=== PATIENT | female | born 1955 | race Caucasian/White ===

== ENCOUNTER 2020-01-09 21:46 | Emergency (ER) | payer OTHER ==
[~2020-01-09] VITALS: Ht 162.6 cm; Wt 5.9 kg
[~2020-01-09 21:46] MED LIST: Cleocin HCl300 MG PO
[2020-01-09] MEDS ORDERED: Atrovent Inha12.9 GM INH (22:02)
[2020-01-09 22:32] LABS: BASOPHILS ABSOLUTE AUTO 0.09 K/mm3 (0.00-0.23); BASOPHILS PERCENT AUTO 1 % (0-2); EOSINOPHILS ABSOLUTE AUTO 0.16 K/mm3 (0.00-0.68); EOSINOPHILS PERCENT AUTO 2 % (0-6); Hematocrit 38.6 % (33.0-51.0); Hemoglobin 13.1 g/dL (11.5-16.0); IMMATURE GRAN ABSOLUTE AUTO 0.01 K/mm3 (0.00-0.10); IMMATURE GRAN PERCENT AUTO 0 % (0-1); LYMPHOCYTES ABSOLUTE AUTO 1.75 K/mm3 (0.84-5.20); LYMPHOCYTES PERCENT AUTO 26 % (21-46); MONOCYTES ABSOLUTE AUTO 0.64 K/mm3 (0.16-1.47); MONOCYTES PERCENT AUTO 9 % (4-13); Mean Corpuscular HGB 31.3 pg (26.0-34.0); Mean Corpuscular HGB Conc 33.9 g/dL (31.5-36.5); Mean Corpuscular Volume 92 fL (80-100); Mean Platelet Volume 9.1 fL (9.1-12.4); NEUTROPHILS ABSOLUTE AUTO 4.21 K/mm3 (1.96-9.15); NEUTROPHILS PERCENT AUTO 62 % (41-73); Platelet Count 296 K/mm3 (150-400); RDW Coefficient Variation 12.5 % (11.7-14.2); RDW Standard Deviation 42.5 fL (35.1-46.3); Red Blood Cell Count 4.19 M/mm3 (3.80-5.20); White Blood Cell Count 6.86 K/mm3 (4.00-11.30)
[2020-01-09 22:52] LABS: Alanine Aminotransfer (ALT/SGP 22 U/L (12-78); Albumin, Blood 3.4 g/dL (3.4-5.0); Alk Phos 97 U/L (50-136); Anion Gap 9 mmol/L (6-16); Aspartate Aminotrans (AST/SGOT 16 U/L (12-37); Bilirubin, Total 0.4 mg/dL (0.1-1.0); Blood Urea Nitrogen 18 mg/dL (8-24); Bun/Creatinine Ratio 26.3 (12.0-20.0); CO2, Blood 26 mmol/L (21-32); Calcium, Blood 8.5 mg/dL (8.5-10.1); Chloride, Blood 108 mmol/L (98-108); Creatinine, Blood 0.69 mg/dL (0.40-1.00); Globulin, Blood 3.4 g/dL (2.2-4.0); Glomerular Filtration Rate >60 (60-); Glucose, Blood 149 mg/dL (70-99); Potassium, Blood 4.2 mmol/L (3.5-5.5); Sodium, Blood 143 mmol/L (136-145); Total Protein, Blood 6.8 g/dL (6.4-8.2)
[2020-01-09] MEDS ORDERED: Omeprazole20 M1 PO (23:11)
== END 2020-01-09 23:38 | disposition home or self-care (01) ==
LOC: ER 21:46
PROVIDERS: Physician Assistant
DX: R04.2 Hemoptysis (principal); R10.13 Epigastric pain; E11.9 Type 2 diabetes mellitus without complications; F17.210 Nicotine dependence, cigarettes, uncomplicated; Z88.0 Allergy status to penicillin; Z88.1 Allergy status to other antibiotic agents
CPT/HCPCS: 71045; 80053; 83690; 85025; 99283-25

== ENCOUNTER 2020-07-22 08:08 | Emergency (ER) | payer OTHER ==
[~2020-07-22] VITALS: Ht 162.6 cm; Wt 61.2 kg
[~2020-07-22 08:08] MED LIST changes: +Atrovent Inha12.9 GM INH; +Omeprazole20 M1 PO
[2020-07-22 09:53] LABS: BASOPHILS ABSOLUTE AUTO 0.08 K/mm3 (0.00-0.23); BASOPHILS PERCENT AUTO 1 % (0-2); EOSINOPHILS PERCENT AUTO 1 % (0-6); Hematocrit 42.8 % (33.0-51.0); Hemoglobin 14.4 g/dL (11.5-16.0); IMMATURE GRAN ABSOLUTE AUTO 0.03 K/mm3 (0.00-0.10); IMMATURE GRAN PERCENT AUTO 0 % (0-1); LYMPHOCYTES ABSOLUTE AUTO 1.69 K/mm3 (0.84-5.20); LYMPHOCYTES PERCENT AUTO 16 % (21-46); MONOCYTES ABSOLUTE AUTO 0.77 K/mm3 (0.16-1.47); MONOCYTES PERCENT AUTO 7 % (4-13); Mean Corpuscular HGB 30.7 pg (26.0-34.0); Mean Corpuscular HGB Conc 33.6 g/dL (31.5-36.5); Mean Corpuscular Volume 91 fL (80-100); Mean Platelet Volume 8.8 fL (9.1-12.4); NEUTROPHILS ABSOLUTE AUTO 8.01 K/mm3 (1.96-9.15); NEUTROPHILS PERCENT AUTO 75 % (41-73); Platelet Count 330 K/mm3 (150-400); RDW Coefficient Variation 12.4 % (11.7-14.2); RDW Standard Deviation 40.7 fL (35.1-46.3); Red Blood Cell Count 4.69 M/mm3 (3.80-5.20); White Blood Cell Count 10.68 K/mm3 (4.00-11.30)
== END 2020-07-22 12:23 | disposition home or self-care (01) ==
LOC: ER 08:08
PROVIDERS: Emergency Medicine
DX: R04.0 Epistaxis (principal); E11.9 Type 2 diabetes mellitus without complications; J44.9 Chronic obstructive pulmonary disease, unspecified; Z88.0 Allergy status to penicillin; Z88.1 Allergy status to other antibiotic agents
CPT/HCPCS: 85025; 99283

== ENCOUNTER 2021-02-09 09:46 | Emergency (ER) | payer OTHER ==
[~2021-02-09] VITALS: Ht 162.6 cm; Wt 65.8 kg
[~2021-02-09 09:46] MED LIST changes: +ALBU90OI INH; +ATROVENT HFA12.9 GM; +OMEP20ER PO
[2021-02-09] MEDS ORDERED: Norco 5-325 Ta1 EACH PO (12:02)
== END 2021-02-09 12:18 | disposition home or self-care (01) ==
LOC: ER 09:46
DX: S20.212A Contusion of left front wall of thorax, initial encounter (principal); E11.9 Type 2 diabetes mellitus without complications; J44.9 Chronic obstructive pulmonary disease, unspecified; F17.210 Nicotine dependence, cigarettes, uncomplicated; Z79.899 Other long term (current) drug therapy; Z88.0 Allergy status to penicillin; Z88.8 Allergy status to other drugs, medicaments and biological substances; X50.1XXA Overexertion from prolonged static or awkward postures, initial encounter
CPT/HCPCS: 71100; 99283-25; A9270

== ENCOUNTER 2021-03-08 20:43 | Emergency (ER) | payer OTHER ==
[~2021-03-08] VITALS: Ht 162.6 cm; Wt 65.8 kg
[~2021-03-08 20:43] MED LIST changes: +Norco 5-325 Ta1 EACH PO
[2021-03-08] MEDS ORDERED: Monodox100 MG PO (22:13)
== END 2021-03-08 22:52 | disposition home or self-care (01) ==
LOC: ER 20:43
DX: L03.115 Cellulitis of right lower limb (principal); E11.9 Type 2 diabetes mellitus without complications; J44.9 Chronic obstructive pulmonary disease, unspecified; Z88.0 Allergy status to penicillin; Z88.8 Allergy status to other drugs, medicaments and biological substances; Z87.891 Personal history of nicotine dependence
CPT/HCPCS: 93971; 99283-25; A9270

== ENCOUNTER 2021-04-21 01:59 | Day surgery (SDC) | payer OTHER ==
[~2021-04-21 01:59] MED LIST changes: +Monodox100 MG PO
== END 2021-04-21 23:00 | disposition home or self-care (01) ==
LOC: WOUND 01:59
DX: L03.115 Cellulitis of right lower limb (principal); Z88.0 Allergy status to penicillin
CPT/HCPCS: G0463

== ENCOUNTER 2021-04-29 17:39 | Emergency (ER) | payer OTHER ==
[~2021-04-29] VITALS: Ht 162.6 cm; Wt 64.4 kg
== END 2021-04-29 20:07 | disposition home or self-care (01) ==
LOC: ER 17:39
DX: K44.9 Diaphragmatic hernia without obstruction or gangrene (principal); E11.9 Type 2 diabetes mellitus without complications; M81.0 Age-related osteoporosis without current pathological fracture; J44.9 Chronic obstructive pulmonary disease, unspecified; Z88.0 Allergy status to penicillin; Z88.1 Allergy status to other antibiotic agents; Z87.891 Personal history of nicotine dependence; Z20.822 Contact with and (suspected) exposure to COVID-19
CPT/HCPCS: 71045; 99283-25

== ENCOUNTER 2021-08-23 18:56 | Emergency (ER) | payer OTHER ==
[~2021-08-23] VITALS: Ht 162.6 cm; Wt 60.8 kg
== END 2021-08-23 20:02 | disposition home or self-care (01) ==
LOC: ER 18:56
DX: J06.9 Acute upper respiratory infection, unspecified (principal); Z20.822 Contact with and (suspected) exposure to COVID-19; E11.9 Type 2 diabetes mellitus without complications; J44.9 Chronic obstructive pulmonary disease, unspecified; Z87.891 Personal history of nicotine dependence; Z88.0 Allergy status to penicillin; Z88.8 Allergy status to other drugs, medicaments and biological substances
CPT/HCPCS: 99284

== ENCOUNTER 2022-02-04 18:54 | Emergency (ER) | payer OTHER ==
[~2022-02-04] VITALS: Ht 162.6 cm; Wt 66.7 kg
[2022-02-04 19:39] LABS: BASOPHILS ABSOLUTE AUTO 0.08 K/mm3 (0.00-0.23); BASOPHILS PERCENT AUTO 1 % (0-2); EOSINOPHILS ABSOLUTE AUTO 0.29 K/mm3 (0.00-0.68); EOSINOPHILS PERCENT AUTO 4 % (0-6); Hematocrit 40.5 % (33.0-51.0); Hemoglobin 13.7 g/dL (11.5-16.0); IMMATURE GRAN ABSOLUTE AUTO 0.02 K/mm3 (0.00-0.10); IMMATURE GRAN PERCENT AUTO 0 % (0-1); LYMPHOCYTES ABSOLUTE AUTO 1.97 K/mm3 (0.84-5.20); LYMPHOCYTES PERCENT AUTO 26 % (21-46); MONOCYTES ABSOLUTE AUTO 0.75 K/mm3 (0.16-1.47); MONOCYTES PERCENT AUTO 10 % (4-13); Mean Corpuscular HGB 30.3 pg (26.0-34.0); Mean Corpuscular HGB Conc 33.8 g/dL (31.5-36.5); Mean Corpuscular Volume 90 fL (80-100); Mean Platelet Volume 9.4 fL (9.1-12.4); NEUTROPHILS ABSOLUTE AUTO 4.49 K/mm3 (1.96-9.15); NEUTROPHILS PERCENT AUTO 59 % (41-73); Platelet Count 324 K/mm3 (150-400); RDW Standard Deviation 42.5 fL (35.1-46.3); Red Blood Cell Count 4.52 M/mm3 (3.80-5.20)
[2022-02-04 20:00] LABS: Albumin, Blood 3.3 g/dL (3.4-5.0); Bilirubin, Total 0.2 mg/dL (0.1-1.0); Bun/Creatinine Ratio 23.6 (12.0-20.0); Calcium, Blood 8.6 mg/dL (8.5-10.1); Creatinine, Blood 0.76 mg/dL (0.40-1.00); Globulin, Blood 3.4 g/dL (2.2-4.0); Potassium, Blood 3.8 mmol/L (3.5-5.5); Total Protein, Blood 6.7 g/dL (6.4-8.2)
== END 2022-02-04 22:37 | disposition left against medical advice (07) ==
LOC: ER 18:54
PROVIDERS: Emergency Medicine
DX: R07.9 Chest pain, unspecified (principal); Z53.21 Procedure and treatment not carried out due to patient leaving prior to being seen by health care provider
CPT/HCPCS: 36415; 71046; 80053; 83690; 83880; 84484; 85025; 93005; 93010

== ENCOUNTER 2022-04-04 14:08 | Emergency (ER) | payer OTHER ==
[~2022-04-04] VITALS: Ht 162.6 cm; Wt 63.5 kg
== END 2022-04-04 15:59 | disposition home or self-care (01) ==
LOC: ER 14:08
DX: U07.1 COVID-19 (principal); E11.9 Type 2 diabetes mellitus without complications; Z87.891 Personal history of nicotine dependence
CPT/HCPCS: 99282

== ENCOUNTER → 2022-04-13 | Outpatient (CLI) | payer OTHER ==
[2022-04-15 19:06] LABS: HPV 16 Negative (Negative); HPV 18 Negative (Negative); HPV OTHER HR TYPES Positive (Negative)
== END | disposition home or self-care (01) ==
LOC: LAB SHORT 12:04 → LAB 12:04
PROVIDERS: Registered Nurse Community Health
DX: Z12.4 Encounter for screening for malignant neoplasm of cervix (principal)
CPT/HCPCS: 87624; 87625; G0123

== ENCOUNTER 2022-07-15 08:32 | Day surgery (SDC) | payer MEDICARE, OTHER ==
[~2022-07-15] VITALS: Ht 162.6 cm; Wt 65.3 kg
[2022-07-15] MEDS ORDERED: Bentyl10 MG (09:35)
[2022-07-15] MEDS ORDERED: ALBU90OI (09:35)
[2022-07-15] MEDS ORDERED: OMEP20ER (09:36)
[2022-07-15] MEDS ORDERED: IPRAT-ALBUT 0.5-3 ML (09:36)
== END 2022-07-15 10:50 | disposition home or self-care (01) ==
LOC: ORSCSDS 08:32
PROVIDERS: Surgery
PROC: 0DB48ZX Excision of Esophagogastric Junction, Via Natural or Artificial Opening Endoscopic, Diagnostic (ICD-10-PCS; principal; 2022-07-15 10:15)
DX: K21.9 Gastro-esophageal reflux disease without esophagitis (principal); K22.70 Barrett's esophagus without dysplasia; K44.9 Diaphragmatic hernia without obstruction or gangrene; Z87.891 Personal history of nicotine dependence; J44.9 Chronic obstructive pulmonary disease, unspecified; E11.9 Type 2 diabetes mellitus without complications; E78.5 Hyperlipidemia, unspecified; Z79.899 Other long term (current) drug therapy
CPT/HCPCS: 88305; J2704; J7120

== ENCOUNTER 2022-10-27 15:00 | Emergency (ER) | payer MEDICARE, OTHER ==
[~2022-10-27] VITALS: Ht 162.6 cm; Wt 68.0 kg
[~2022-10-27 15:00] MED LIST changes: +ALBU90OI; +Bentyl10 MG; +IPRAT-ALBUT 0.5-3 ML; +OMEP20ER
[2022-10-27 16:28] LABS: Source, Urine Clean Catch
[2022-10-27 16:32] LABS: Appearance, Urine Clear (Clear); Bilirubin, Urine Neg (Neg); Blood, Urine Neg (Neg); Color, Urine Yellow (P-Yellow); Glucose Qualitative, Urine Neg (Neg); Ketones, Urine Neg (Neg); Leukocyte Esterase, Urine Neg (Neg); Nitrite, Urine Neg (Neg); Protein, Urine Neg (Neg); Specific Gravity, Urine 1.025 (1.003-1.022); Urobilinogen, Urine NORM (Normal)
== END 2022-10-27 16:52 | disposition home or self-care (01) ==
LOC: ER 15:00
PROVIDERS: Student in an Organized Health Care Education/Training Program
DX: M79.605 Pain in left leg (principal); E11.9 Type 2 diabetes mellitus without complications; Z79.899 Other long term (current) drug therapy; Z87.891 Personal history of nicotine dependence
CPT/HCPCS: 81003; 93971; 96372; 99284-25; J1885

== ENCOUNTER 2023-12-12 00:33 | Inpatient (IN) | payer MEDICARE, OTHER ==
[~2023-12-12] VITALS: Ht 160 cm; Wt 61.2 kg
[2023-12-12] VITALS (21 sets, daily range): BP systolic 115–193; BP diastolic 70–103
[~2023-12-12 00:33] MED LIST changes: +BENADRYL25 MG PO; +CLIN150 PO; +DELTASONE20 MG PO; +ESTRADIOL42.5 GM; +FAMO20 PO; +TRITOCIN430 GM
[2023-12-12] MEDS ORDERED: NS 1,000 ML IV SCH ×2 (02:10→05:20)
[2023-12-12] MEDS ORDERED: Ondansetron HCl 2 MG / ML 2ML Vial IV ONE (02:10)
[2023-12-12] MEDS ORDERED: Ketorolac Tromethamine 30mg Vial IV ONE (02:10)
[2023-12-12 02:22] LABS: BASOPHILS ABSOLUTE AUTO 0.08 K/mm3 (0.00-0.23); BASOPHILS PERCENT AUTO 1 % (0-2); EOSINOPHILS ABSOLUTE AUTO 0.05 K/mm3 (0.00-0.68); EOSINOPHILS PERCENT AUTO 1 % (0-6); Hematocrit 41.3 % (33.0-51.0); Hemoglobin 14.2 g/dL (11.5-16.0); IMMATURE GRAN ABSOLUTE AUTO 0.05 K/mm3 (0.00-0.10); IMMATURE GRAN PERCENT AUTO 1 % (0-1); LYMPHOCYTES ABSOLUTE AUTO 0.82 K/mm3 (0.84-5.20); LYMPHOCYTES PERCENT AUTO 8 % (21-46); MONOCYTES ABSOLUTE AUTO 0.53 K/mm3 (0.16-1.47); MONOCYTES PERCENT AUTO 5 % (4-13); Mean Corpuscular HGB 30.5 pg (26.0-34.0); Mean Corpuscular HGB Conc 34.4 g/dL (31.5-36.5); Mean Corpuscular Volume 89 fL (80-100); Mean Platelet Volume 8.9 fL (9.1-12.4); NEUTROPHILS PERCENT AUTO 85 % (41-73); Platelet Count 367 K/mm3 (150-400); RDW Coefficient Variation 13.2 % (11.7-14.2); RDW Standard Deviation 42.7 fL (35.1-46.3); Red Blood Cell Count 4.65 M/mm3 (3.80-5.20); White Blood Cell Count 10.13 K/mm3 (4.00-11.30)
[2023-12-12 02:40] LABS: Albumin, Blood 3.9 g/dL (3.4-5.0); Albumin/Globulin Ratio 1.1 (0.8-1.8); Bilirubin, Total 0.6 mg/dL (0.1-1.0); Bun/Creatinine Ratio 15.1 (12.0-20.0); Calcium, Blood 9.1 mg/dL (8.5-10.1); Creatinine, Blood 0.6 mg/dL (0.40-1.00); Globulin, Blood 3.6 g/dL (2.2-4.0); Magnesium, Blood 1.9 mg/dL (1.6-2.4); Potassium, Blood 3.7 mmol/L (3.5-5.5); Total Protein, Blood 7.5 g/dL (6.4-8.2)
[2023-12-12 03:18] LABS: Source, Urine Clean Catch
[2023-12-12 03:28] LABS: Bilirubin, Urine Neg (Neg); Blood, Urine Neg (Neg); Glucose Qualitative, Urine Neg (Neg); Ketones, Urine 1+ (Neg); Leukocyte Esterase, Urine Neg (Neg); Nitrite, Urine Neg (Neg); Protein, Urine Neg (Neg); Urobilinogen, Urine NORM (Normal)
[2023-12-12 03:30] LABS: Appearance, Urine Clear (Clear); Color, Urine Yellow (P-Yellow)
[2023-12-12] MEDS ORDERED: FentaNYL Citrate 50 MCG/ML 2 ML Injection IV ONE ×2 (03:55→04:55)
[2023-12-12] MEDS ORDERED: FentaNYL Citrate 50 MCG/ML 2 ML Injection IV PRN (05:15)
[2023-12-12] MEDS ORDERED: Ondansetron HCl 2 MG / ML 2ML Vial IV PRN (05:20)
--- NOTE | 2023-12-12 06:18 | NUR ---
ATTEMPTED TO CALL FOR RN REPORT BUT NGT PLACEMENT WAS IN PROGRESS. AWAITING RETURN CALL AT THIS TIME.
[2023-12-12] MEDS ORDERED: Insulin Human Lispro 100 Units/ML 3ML Syringe SC SCH (07:30)
[2023-12-12 07:33] LABS: International Normalized Ratio 0.98; Prothrombin Time Results 10.3 Sec (9.7-11.5)
[2023-12-12] MEDS ORDERED: HydrALAZINE HCl 20 MG / ML 1ML Vial IV STA (07:43)
--- NOTE | 2023-12-12 07:49 | NUR ---
DISCUSSED NGT PLACEMENT HERE ON MED FLOOR. PT REFUSED PLACEMENT AT THIS TIME. PT REPORTS NAUSEA NO EMESIS, SPITTING SALIVA, REPORT UNABLE TO SWALLOW. SALIVA HAS JOSÉ MANUEL RED BLOOD THAT RESULTED FROM PREVIOUS NGT PLACEMENT ATTEMPS. PT STATED THAT SHE MAY BE WILLING TO TRY AGAIN LATER. ADMIT FROM ER. REPORTS PAIN FROM MOVEMENT. WILL BEGIN NS INFUSION. ABSENT BOWEL SOUNDS. DENIES C/P AND SOB. BED IN THE LOWEST POSITION WITH CALL LIGHT IN REACH
[2023-12-12] MEDS ORDERED: HydrALAZINE HCl 20 MG / ML 1ML Vial IV PRN (08:00)
[2023-12-12] MEDS ORDERED: NS 1,000 ML IV ONE (08:09)
[2023-12-12] MEDS ORDERED: HYDROmorphone HCl/Pf 1MG SYR IV PRN (08:45)
[2023-12-12] MEDS ORDERED: Metoclopramide HCl 5MG / ML 2ML Vial IV PRN (08:45)
--- NOTE | 2023-12-12 12:24 | NUR ---
PT LEFT FOR SURGERY. ALERT AND ORIENTED X4, PAIN LEVEL BETTER CONTROLLED WITH DILAUDID. PT STAND PIVOT WITH NURSE ASSIST FROM BED TO BED. BLOOD SUGARS HAVE BEEN WITHIN NORMAL LIMITS. PT REQUESTED THAT I CALL HER SISTER JUSTINO TO RELAY CURRENT SITUATION, THIS RN DID CALL BUT NO ANSWER.
[2023-12-12] MEDS ORDERED: CeFAZolin Sodium 2,000 MG in NS 100 ML IV SCH (12:45)
[2023-12-12] MEDS ORDERED: Bupivacaine 0.5% HCl 5 MG/ML 30MLVIAL ONE (12:45)
[2023-12-12] MEDS ORDERED: Lactated Ringer's 1,000 ML IV SCH (12:45)
[2023-12-12] MEDS ORDERED: propofoL 20 ML IV ONE (13:23)
[2023-12-12] MEDS ORDERED: FentaNYL Citrate 50 MCG/ML 5 ML Injection ONE (13:24)
[2023-12-12] MEDS ORDERED: Rocuronium Bromide 10 MG/ML 5ML Injection IV ONE ×3 (13:25→16:39)
[2023-12-12] MEDS ORDERED: ePHEDrine Sulfate 50 MG/ML 1ML Injection ONE (13:48)
[2023-12-12] MEDS ORDERED: Phenylephrine HCl 100 MCG/ML-NS 10MLSYR (1MG/10ML) ONE ×2 (13:55→16:57)
--- NOTE | 2023-12-12 14:13 | NUR ---
PT ITEMS MOVED TO ROOM 227. CALLED TO GIVE REPORT TO RN. RN UNAVAILABLE AT THAT TIME. TOLD ACC ON 2ND FLOOR TO HAVE RN CALL FOR REPORT. WHEN AVAILABLE
--- NOTE | 2023-12-12 14:47 | NUR ---
REPORT GIVEN TO CECILY SMILEY.
[2023-12-12] MEDS ORDERED: FentaNYL Citrate 50 MCG/ML 2 ML Injection ONE ×2 (16:10→18:33)
[2023-12-12] MEDS ORDERED: Indocyanine Green 25 MG Vial IV ONE (17:00)
[2023-12-12] MEDS ORDERED: Indocyanine Green 25 MG Vial ONE (17:01)
[2023-12-12] MEDS ORDERED: Sugammadex Sodium 200 MG/2ML SDV (100 MG/ML) ONE (18:19)
[2023-12-12] MEDS ORDERED: Acetaminophen 325 MG TABLET PO PRN (18:30)
[2023-12-12] MEDS ORDERED: OxyCODONE HCL 5 MG TAB PO PRN (18:30)
[2023-12-12] MEDS ORDERED: Ketorolac Tromethamine 15mg Vial IV PRN (18:35)
[2023-12-13 00:27] VITALS: BP 109/81
[2023-12-13 01:48] VITALS: BP 116/78
[2023-12-13 04:11] VITALS: BP 120/81
[2023-12-13 04:51] LABS: BASOPHILS ABSOLUTE AUTO 0.04 K/mm3 (0.00-0.23); BASOPHILS PERCENT AUTO 0 % (0-2); EOSINOPHILS ABSOLUTE AUTO 0.01 K/mm3 (0.00-0.68); EOSINOPHILS PERCENT AUTO 0 % (0-6); Hematocrit 40.2 % (33.0-51.0); Hemoglobin 13.6 g/dL (11.5-16.0); IMMATURE GRAN ABSOLUTE AUTO 0.03 K/mm3 (0.00-0.10); IMMATURE GRAN PERCENT AUTO 0 % (0-1); LYMPHOCYTES ABSOLUTE AUTO 0.69 K/mm3 (0.84-5.20); LYMPHOCYTES PERCENT AUTO 6 % (21-46); MONOCYTES ABSOLUTE AUTO 0.81 K/mm3 (0.16-1.47); MONOCYTES PERCENT AUTO 7 % (4-13); Mean Corpuscular HGB 30.8 pg (26.0-34.0); Mean Corpuscular HGB Conc 33.8 g/dL (31.5-36.5); Mean Corpuscular Volume 91 fL (80-100); Mean Platelet Volume 8.9 fL (9.1-12.4); NEUTROPHILS ABSOLUTE AUTO 9.36 K/mm3 (1.96-9.15); NEUTROPHILS PERCENT AUTO 86 % (41-73); Platelet Count 330 K/mm3 (150-400); RDW Coefficient Variation 13.7 % (11.7-14.2); RDW Standard Deviation 46.4 fL (35.1-46.3); Red Blood Cell Count 4.41 M/mm3 (3.80-5.20); White Blood Cell Count 10.94 K/mm3 (4.00-11.30)
[2023-12-13 05:27] LABS: Bilirubin, Total 0.8 mg/dL (0.1-1.0); Bun/Creatinine Ratio 16.7 (12.0-20.0); Creatinine, Blood 0.78 mg/dL (0.40-1.00); Globulin, Blood 3.1 g/dL (2.2-4.0); Potassium, Blood 4.1 mmol/L (3.5-5.5); Total Protein, Blood 6.1 g/dL (6.4-8.2)
[2023-12-13 06:51] VITALS: BP 111/72
--- NOTE | 2023-12-13 07:20 | NUR ---
SHIFT SUMMARY POST GASTROPEXY PT IS A&O X4, VSS, NSR PER RECREATION CENTER DIRECTOR, 2L O2 VIA NC, SPO2 >95%, PT HAS BEEN SLEEPY BUT WAKES TO VERBAL STIMULI, APPROX 100 ML'S DARK BROWN LIQUID NOTED IN NG CANISTER, PT DENIES NAUSEA, FREQUENT ORAL CARE DONE W PT ASSIST, PAIN MANAGED W 0.5 MG IV DILAUDID X2, PT UNABLE TO VOID POST SURG, DENIES PRESSURE/URGE, SCD'S ARE ON, BEDSIDE REPORT GIVEN TO JADE TONY, CALL LIGHT IN REACH,
--- NOTE | 2023-12-13 08:13 | NUR ---
DC'D NGT PER ORDERS. PT TOLERATED WELL. ICE CHIPS PROVIDED.
--- NOTE | 2023-12-13 09:58 | NUR ---
12/13/23 0958 Lupe Maravilla, RN, MIRIAM SIDDIQUI, RN, JOEL PACE, RN, AND MYSELF ENTERED THE OR AT 1700 TO SET UP OUR EQUIPMENT. SARAI HELPED SEYMOUR BLEDSOE RN CLEAR SPACE FOR US THEN [place] SET UP. DR. FISCHER PASSED THE SCOPE AT 1717, WE USED ONE 50ML FLUSH OF STERILE WATER AND SIMETHICONE DURING THE PROCEDURE, THE SCOPE CAME OUT OF PT AT 1726.
[2023-12-13 14:37] VITALS: BP 114/80
--- NOTE | 2023-12-13 16:48 | NUR ---
SUMMARY NO ACUTE CHANGES T/O SHIFT. PT'S NGT DC'D THIS AM PER ORDERS AND PT STARTED ON CLEAR LIQUIDS. PT REPORTED HAD DIFFICULTY SWALLOWING JELLO. ABLE TO SIP FLUIDS OKAY. ADVANCING TO FULL LIQUIDS FOR DINNER PER ORDERS. PT VOIDING KARLA URINE. SAT UP IN CHAIR AND WORKED WITH THERAPY. ALSO AMBULATED IN [place] W/RN USING GAIT BELT AND FWW. NOW BACK TO BED. MEDICATED DURING SHIFT W/ 0.5 MG DILAUDID IV FOR PAIN. SATS DROP SLIGHTLY AFTER PAIN MEDS, PT ON 2L 02 TO KEEP SATS >90%. PT CHICKALOON. CALL LIGHT IN REACH.
[2023-12-13 19:26] VITALS: BP 139/94
[2023-12-13] MEDS ORDERED: NS 1,000 ML IV SCH (21:20)
[2023-12-13] MEDS ORDERED: OxyCODONE HCl Soln 20 MG/ML 1 ML Oral SYR PO PRN (21:25)
[2023-12-14 02:32] VITALS: BP 123/78
[2023-12-14 07:30] VITALS: BP 145/74
--- NOTE | 2023-12-14 07:30 | NUR ---
POD 2, PT VSS, SATS >90% ON 2L O2 NC. PT USING I/S AT BEDISDE. PT CONT TO C/O SWALLOWING DIFFICULTY R/T PAIN W/SWALLOWING. PT VETO SIPS OF WATER AND APPLE JUICE. PT DENIED N/V, REP + SMALL AMT FLATUS. PT MED FOR PAIN PER EMAR, LIQ OXYCODONE ORDER REC; PT DECLINED. INCISIONS CDI W/MILD BRUISING NOTED. ABD MILDLY DISTENDED. PT VOIDING DARK YELLOW URINE, IVF CONT PER ORDERS. PT UP OOB W/SBA, VETO WELL.
[2023-12-14 14:57] VITALS: BP 115/76
--- NOTE | 2023-12-14 17:37 | NUR ---
SHIFT SUMMARY PATIENT AOX4, BISHOP PAIUTE. SBA W/FWW. POD1 FUNDIPLICATION/GASTROPLEXY. LAP SITES X4 C/D/I. LINER REPLACER WITH WOUND GLUE. TOLERATING FL DIET. MEDICATED X1 THIS SHIFT FOR PAIN. REPORTS PASSING GAS. AMBULATING IN [place], USES IS AT BEDSIDE IN CHAIR FOR ALL MEALS. PLEASANT AND COOPERATIVE, CALL LIGHT IN REACH.
[2023-12-14 18:23] VITALS: BP 125/71
--- NOTE | 2023-12-15 05:43 | NUR ---
SHIFT SUMMARY PT IS A/O X4, STANDBY ASSIST TO BATHROOM. DRESSINGS REMAIN C/D/I, MILD BRUISING NOTED. PT MEDICATED FOR PAIN PER EMAR W/ TOLERABLE RESULTS, NO COMPLAINTS OF N/V THIS SHIFT. LOOSE BM ONCE THIS SHIFT, PASSING FLATUS. VSS. PT CURRENTLY SLEEPING COMFORTABLY. CALL LIGHT IN REACH.
[2023-12-15 06:02] VITALS: BP 140/80
[2023-12-15 07:06] VITALS: BP 125/81
[2023-12-15 09:13] LABS: Hematocrit 34.2 % (33.0-51.0); Hemoglobin 11.7 g/dL (11.5-16.0); Mean Corpuscular HGB 30.9 pg (26.0-34.0); Mean Corpuscular HGB Conc 34.2 g/dL (31.5-36.5); Mean Corpuscular Volume 90 fL (80-100); Mean Platelet Volume 8.9 fL (9.1-12.4); Platelet Count 281 K/mm3 (150-400); RDW Coefficient Variation 13.1 % (11.7-14.2); RDW Standard Deviation 43.4 fL (35.1-46.3); Red Blood Cell Count 3.79 M/mm3 (3.80-5.20); White Blood Cell Count 10.97 K/mm3 (4.00-11.30)
[2023-12-15 10:29] LABS: Albumin, Blood 2.4 g/dL (3.4-5.0); Albumin/Globulin Ratio 0.6 (0.8-1.8); Bilirubin, Total 0.9 mg/dL (0.1-1.0); Bun/Creatinine Ratio 15.6 (12.0-20.0); Calcium, Blood 8.1 mg/dL (8.5-10.1); Creatinine, Blood 0.64 mg/dL (0.40-1.00); Globulin, Blood 3.9 g/dL (2.2-4.0); Potassium, Blood 4.1 mmol/L (3.5-5.5); Total Protein, Blood 6.3 g/dL (6.4-8.2)
[2023-12-15 14:13] VITALS: BP 133/82
--- NOTE | 2023-12-15 18:45 | NUR ---
DISCHARGE PATIENT READ AND GIVEN ALL INSTRUCTIONS FOR DISCHARGE HOME WITH HOME HEALTH TO COME OUT. IV TAKEN OUT AND INTACT. PATIENT PRESCRIPTIONS CALLED INTO [facility] PAIN MEDICATION GIVEN TO PATIENT. [facility] CONFIRMED THEY DID HAVE HER SPECIFIC PAIN MEDICATION AND PATIENT WAS ADVISED TO TAKE SCRIPT THERE FOR FILL. PATIENT LEAVES VIA TAXI.
== END 2023-12-15 17:25 | disposition home or self-care (01) | DRG 328 ==
LOC: ER 00:33 → SURS 05:15 → MEDS 05:15 → SURS 14:49
PROVIDERS: Internal Medicine; Student in an Organized Health Care Education/Training Program; ADMIT Internal Medicine
PROC: 0BUT4JZ Supplement Diaphragm with Synthetic Substitute, Percutaneous Endoscopic Approach (ICD-10-PCS; principal; 2023-12-14)
PROC: 0DQ64ZZ Repair Stomach, Percutaneous Endoscopic Approach (ICD-10-PCS; 2023-12-14)
PROC: 8E0W4CZ Robotic Assisted Procedure of Trunk Region, Percutaneous Endoscopic Approach (ICD-10-PCS; 2023-12-14)
PROC: 0DJ08ZZ Inspection of Upper Intestinal Tract, Via Natural or Artificial Opening Endoscopic (ICD-10-PCS; 2023-12-14)
DX: K44.0 Diaphragmatic hernia with obstruction, without gangrene (principal); M06.9 Rheumatoid arthritis, unspecified; J44.9 Chronic obstructive pulmonary disease, unspecified; L30.9 Dermatitis, unspecified; B18.2 Chronic viral hepatitis C; I10 Essential (primary) hypertension; K22.70 Barrett's esophagus without dysplasia; R13.10 Dysphagia, unspecified; E11.9 Type 2 diabetes mellitus without complications; H91.90 Unspecified hearing loss, unspecified ear; Z98.890 Other specified postprocedural states; Z98.891 History of uterine scar from previous surgery; Z85.41 Personal history of malignant neoplasm of cervix uteri; Z90.711 Acquired absence of uterus with remaining cervical stump; Z87.891 Personal history of nicotine dependence; Z88.0 Allergy status to penicillin; Z88.8 Allergy status to other drugs, medicaments and biological substances; Z79.899 Other long term (current) drug therapy
CPT/HCPCS: 36415; 74177; 80053; 81003; 82947; 83690; 83735; 83880; 85025; 85027; 85610; 96361; 96374-59; 96375; 96376; 97110; 97116; 97162; 99285-25; A9270; C1781; J0360; J0690; J1170; J1885; J2371; J2405; J2704; J2765; J3010; J7030; J7120; Q9967

== ENCOUNTER 2023-12-18 10:58 | Observation (INO) | payer MEDICARE, OTHER ==
[~2023-12-18] VITALS: Ht 162.6 cm; Wt 59.8 kg
[~2023-12-18 10:58] MED LIST changes: -OMEP20ER
[2023-12-18 11:57] LABS: BASOPHILS ABSOLUTE AUTO 0.05 K/mm3 (0.00-0.23); BASOPHILS PERCENT AUTO 0 % (0-2); EOSINOPHILS ABSOLUTE AUTO 0.13 K/mm3 (0.00-0.68); EOSINOPHILS PERCENT AUTO 1 % (0-6); Hematocrit 39.8 % (33.0-51.0); Hemoglobin 13.4 g/dL (11.5-16.0); IMMATURE GRAN ABSOLUTE AUTO 0.08 K/mm3 (0.00-0.10); IMMATURE GRAN PERCENT AUTO 1 % (0-1); LYMPHOCYTES ABSOLUTE AUTO 0.92 K/mm3 (0.84-5.20); LYMPHOCYTES PERCENT AUTO 8 % (21-46); MONOCYTES ABSOLUTE AUTO 1.43 K/mm3 (0.16-1.47); MONOCYTES PERCENT AUTO 12 % (4-13); Mean Corpuscular HGB 30.2 pg (26.0-34.0); Mean Corpuscular HGB Conc 33.7 g/dL (31.5-36.5); Mean Corpuscular Volume 90 fL (80-100); Mean Platelet Volume 8.9 fL (9.1-12.4); NEUTROPHILS ABSOLUTE AUTO 9.38 K/mm3 (1.96-9.15); NEUTROPHILS PERCENT AUTO 78 % (41-73); Platelet Count 359 K/mm3 (150-400); RDW Coefficient Variation 12.7 % (11.7-14.2); RDW Standard Deviation 42.3 fL (35.1-46.3); Red Blood Cell Count 4.43 M/mm3 (3.80-5.20); White Blood Cell Count 11.99 K/mm3 (4.00-11.30)
[2023-12-18 12:16] LABS: Albumin, Blood 2.8 g/dL (3.4-5.0); Albumin/Globulin Ratio 0.6 (0.8-1.8); Bilirubin, Total 0.9 mg/dL (0.1-1.0); Bun/Creatinine Ratio 14.1 (12.0-20.0); Calcium, Blood 9.3 mg/dL (8.5-10.1); Creatinine, Blood 0.5 mg/dL (0.40-1.00); Globulin, Blood 4.5 g/dL (2.2-4.0); Potassium, Blood 4.6 mmol/L (3.5-5.5); Total Protein, Blood 7.3 g/dL (6.4-8.2)
[2023-12-18 13:17] LABS: Source, Urine Clean Catch
[2023-12-18 13:19] LABS: Appearance, Urine Clear (Clear); Bilirubin, Urine Neg (Neg); Blood, Urine 1+ (Neg); Color, Urine Amber (P-Yellow); Glucose Qualitative, Urine Neg (Neg); Ketones, Urine 1+ (Neg); Leukocyte Esterase, Urine 1+ (Neg); Nitrite, Urine Neg (Neg); Protein, Urine 2+ (Neg); Specific Gravity, Urine 1.015 (1.003-1.022); Urobilinogen, Urine 3+ (Normal)
[2023-12-18 13:34] LABS: Amorphous Light (0-Heavy); Bacteria Few /hpf; Hyaline Casts 0-2 /lpf (0-2); Squamous Epithelial Cells Few /hpf (Few)
[2023-12-18] MEDS ORDERED: Morphine Sulfate 4 MG/1 ML Injection IV ONE (15:25)
[2023-12-18] MEDS ORDERED: Ondansetron HCl 2 MG / ML 2ML Vial IV ONE (15:25)
[2023-12-18] MEDS ORDERED: OxyCODONE HCl Soln 20 MG/ML 1 ML Oral SYR PO PRN (19:35)
[2023-12-19] MEDS ORDERED: OxyCODONE HCL 1 MG/ML 5MLUDC PO PRN (09:00)
[2023-12-19] MEDS ORDERED: Polyethylene Glycol 3350 17 gm PO PRN (10:35)
[2023-12-19] MEDS ORDERED: Docusate Sodium 100 MG Cap PO SCH (10:35)
[2023-12-19] MEDS ORDERED: Bisacodyl 10 MG Supp PR PRN (15:40)
[2023-12-19] MEDS ORDERED: HYDROmorphone HCl 2 MG Tab PO PRN (15:45)
[2023-12-19] MEDS ORDERED: Acetaminophen 325 MG TABLET PO PRN (15:45)
[2023-12-19] MEDS ORDERED: Ondansetron HCl 2 MG / ML 2ML Vial IV PRN (15:45)
[2023-12-19] MEDS ORDERED: Morphine Sulfate 20 MG/1ML 1 ML Oral Syringe PO PRN (16:25)
[2023-12-19] MEDS ORDERED: Ketorolac Tromethamine 15mg Vial IV PRN (16:30)
[2023-12-19] MEDS ORDERED: Pantoprazole Sodium 40 MG Injection IV SCH (16:30)
[2023-12-19 18:26] VITALS: BP 131/80
--- NOTE | 2023-12-19 18:53 | NUR ---
SHIFT SUMMARY PT BROUGHT UP TO THE FLORR FROM ER AND ORIENTED TO HER ROOM, ABLE TO SELF TRANSFER WITH SBA USING FWW WHICH SHE STATES SHE HAS BEEN USING SINCE SHE HAD ABD SURGERY LAST WEEK. ANDREAFSKI BUT ABLE TO ANSWER ALL QUESTIONS APPROPRIATELY, NO ACUTE EVENTS, REPORTS PASSING FLATUS BUT NO BM. CALL LIGHT IN REACH.
[2023-12-19 19:13] VITALS: BP 127/82
[2023-12-19] MEDS ORDERED: Sennosides 8.6 MG Tab PO SCH (21:00)
[2023-12-19] MEDS ORDERED: Famotidine 20 MG Tab PO SCH (21:00)
[2023-12-20 04:18] VITALS: BP 111/75
--- NOTE | 2023-12-20 05:39 | NUR ---
SHIFT SUMMARY PT STILL COMPLAINS OF SHARP SHOOTING PAINS TO ABD. TORADOL FOR PAIN MANAGEMENT. UP TO BATHROOM WITH SBA. PT VOIDING. VETO SMALL AMOUNTS OF CLEARS. DENIES FLATUS. LAP SITES REMAIN UNCHANGED. VSS. PT USES CALL LIGHT APPROPRIATELY.
[2023-12-20 07:08] VITALS: BP 119/80
[2023-12-20] MEDS ORDERED: Enoxaparin 40 MG/0.4 ML SYR SC SCH (09:00)
[2023-12-20 14:13] VITALS: BP 130/81
--- NOTE | 2023-12-20 16:10 | NUR ---
DISCHARGE TO VIA TAXI. TOLERATING CLEAR LQs WELL. VOIDING, PASSING GAS, & BM TODAY. EXCITED TO DC TO SNF. RX FROM PHARMACY RETURNED TO PT.
[2023-12-20] MEDS ORDERED: OXYC1L PO (23:06)
[2023-12-21] MEDS ORDERED: Acetaminophen650 M1 PO (00:42)
[2023-12-21] MEDS ORDERED: FAMO20 PO (00:43)
[2023-12-21] MEDS ORDERED: MIRALAX17 GM PO (00:43)
[2023-12-21] MEDS ORDERED: SENN187 PO (00:44)
[2023-12-21] MEDS ORDERED: DIPH50 PO (09:54)
[2023-12-21] MEDS ORDERED: Prednisone20 MG PO (09:55)
== END 2023-12-20 16:07 ==
LOC: ER 10:58 → SURS 12-19 10:59
PROVIDERS: Student in an Organized Health Care Education/Training Program; ADMIT Internal Medicine
DX: K91.89 Other postprocedural complications and disorders of digestive system (principal); K56.7 Ileus, unspecified; Y83.8 Other surgical procedures as the cause of abnormal reaction of the patient, or of later complication, without mention of misadventure at the time of the procedure; R53.81 Other malaise; K21.9 Gastro-esophageal reflux disease without esophagitis; H91.90 Unspecified hearing loss, unspecified ear; E11.9 Type 2 diabetes mellitus without complications; M06.9 Rheumatoid arthritis, unspecified; Z85.41 Personal history of malignant neoplasm of cervix uteri; Z88.0 Allergy status to penicillin; Z88.8 Allergy status to other drugs, medicaments and biological substances; Z87.891 Personal history of nicotine dependence
CPT/HCPCS: 74177; 80053; 81001; 82947; 83690; 85025; 87086; 93005; 93010; 96372; 96374-59; 96375; 96376; 97116; 97161; 97165; 97530; 99285-25; A9270; C9113; G0378; J1650; J1885; J2270; J2405; Q9967

== ENCOUNTER 2023-12-20 18:31 | Observation (INO) | payer MEDICARE, OTHER ==
[~2023-12-20] VITALS: Ht 193 cm; Wt 56.5 kg
[2023-12-20] MEDS ORDERED: DiphenhydrAMINE HCl 50 MG/ML 1ML Vial IV ONE (19:40)
[2023-12-20] MEDS ORDERED: FentaNYL Citrate 50 MCG/ML 2 ML Injection IV ONE (19:40)
[2023-12-20] MEDS ORDERED: Famotidine 10 MG/ML 2ML Vial IV ONE (19:40)
[2023-12-20] MEDS ORDERED: MethylPREDNISolone Sod Succ 125 MG Vial IV ONE (19:45)
[2023-12-20] MEDS ORDERED: EPINEPhrine HCl 1 MG/ML 1ML Amp IM ONE (19:45)
[2023-12-20] MEDS ORDERED: EpiNEPhrine 1 MG/1 ML 1ML Vial IM ONE (19:55)
[2023-12-20 20:10] LABS: EOSINOPHILS ABSOLUTE AUTO 0.45 K/mm3 (0.00-0.68); Hemoglobin 11.9 g/dL (11.5-16.0)
[2023-12-20 20:16] LABS: BASOPHILS ABSOLUTE AUTO 0.07 K/mm3 (0.00-0.23); BASOPHILS PERCENT AUTO 1 % (0-2); EOSINOPHILS PERCENT AUTO 5 % (0-6); Hematocrit 35.1 % (33.0-51.0); IMMATURE GRAN ABSOLUTE AUTO 0.08 K/mm3 (0.00-0.10); IMMATURE GRAN PERCENT AUTO 1 % (0-1); LYMPHOCYTES ABSOLUTE AUTO 1.01 K/mm3 (0.84-5.20); LYMPHOCYTES PERCENT AUTO 10 % (21-46); MONOCYTES ABSOLUTE AUTO 0.89 K/mm3 (0.16-1.47); MONOCYTES PERCENT AUTO 9 % (4-13); Mean Corpuscular HGB 30.1 pg (26.0-34.0); Mean Corpuscular HGB Conc 33.9 g/dL (31.5-36.5); Mean Corpuscular Volume 89 fL (80-100); NEUTROPHILS ABSOLUTE AUTO 7.32 K/mm3 (1.96-9.15); NEUTROPHILS PERCENT AUTO 75 % (41-73); RDW Coefficient Variation 12.5 % (11.7-14.2); RDW Standard Deviation 41.2 fL (35.1-46.3); Red Blood Cell Count 3.95 M/mm3 (3.80-5.20); White Blood Cell Count 9.82 K/mm3 (4.00-11.30)
[2023-12-20 20:29] LABS: Albumin, Blood 2.4 g/dL (3.4-5.0); Albumin/Globulin Ratio 0.6 (0.8-1.8); Bilirubin, Total 0.5 mg/dL (0.1-1.0); Bun/Creatinine Ratio 20.4 (12.0-20.0); Calcium, Blood 8.3 mg/dL (8.5-10.1); Creatinine, Blood 0.49 mg/dL (0.40-1.00); Globulin, Blood 4.1 g/dL (2.2-4.0); Potassium, Blood 4.4 mmol/L (3.5-5.5); Total Protein, Blood 6.5 g/dL (6.4-8.2)
[2023-12-20 20:34] LABS: Mean Platelet Volume 9.4 fL (9.1-12.4); Platelet Count 400 K/mm3 (150-400)
[2023-12-20] MEDS ORDERED: OxyCODONE HCl Soln 20 MG/ML 1 ML Oral SYR PO ONE (22:10)
[2023-12-20] MEDS ORDERED: NS 1,000 ML IV ONE (22:20)
[2023-12-20] MEDS ORDERED: Ondansetron HCl 2 MG / ML 2ML Vial IV PRN (22:20)
[2023-12-20] MEDS ORDERED: FentaNYL Citrate 50 MCG/ML 2 ML Injection IV PRN (22:25)
[2023-12-20 23:00] VITALS: BP 128/87
[2023-12-20] MEDS ORDERED: Enoxaparin 40 MG/0.4 ML SYR SC SCH (23:00)
[2023-12-20] MEDS ORDERED: OXYC1L PO (23:06)
[2023-12-20 23:15] VITALS: BP 118/87
--- NOTE | 2023-12-20 23:55 | NUR ---
ARRIVAL TO PCU NOTE RECEIVED REPORT FROM SLIP MAKER WALDEMAR FAIRBANKS AT 2245, PT SHORTLY ARRIVED TO PCU 12 AT 2300 THIS PM. TRANSFERRED FROM [facility] TO PCU BED VIA ONE ASSIST. A/Ox4 AND COOPERATIVE WITH CARE. ANSWERS QUESTIONS APPROPRIATELY AND ABLE TO MAKE HER NEEDS KNOWN. CARDIAC, TELEMETRY REPORTED PT IN SR 70'S. DENIES CP, PRESSURE, OR DIZZINESS. SBP STABLE RANGING 110-120'S. RESPIRATORY, MAINTAINING SPO2 88-92% ON RA. DENIES SOB OR DYSPNEA AT REST AND ABLE TO TALK IN FULL SENTENCES. DENIES ANY THROAT SCRATCHINESS. NO STRIDOR NOTED. GI/, SOME ABD TENDERNESS NOTED WITH PUNCTURE GLOVER NOTED ACROSS ABD. PT REPORTS VERY RECENT PROCEDURE FOR HERNIA REPAIR. DENIES N/V/D, BUT ENDORSES SOME CONSTIPATION. PICTURES TAKEN AND PLACED CHART. SKIN OVERALL C/D/I. REPORTS GENERALIZED WEAKNESS SINCE SURGERY. 1x PIV IN LEFT WRIST. WILL CONTINUE TO PROCESS MD ORDERS. WU NICE UPON ARRIVAL TO PCU
[2023-12-21] MEDS ORDERED: MethylPREDNISolone Sod Succ 125 MG Vial IV SCH
[2023-12-21] MEDS ORDERED: DiphenhydrAMINE HCl 50 MG/ML 1ML Vial IV SCH
[2023-12-21 00:03] LABS: International Normalized Ratio 1.12; Prothrombin Time Results 11.9 Sec (9.7-11.5)
--- NOTE | 2023-12-21 00:29 | NUR ---
UPDATE MIGEL CALLED FOR UPDATE ON PT. ALL QUESTIONS ANSWERED.
[2023-12-21] MEDS ORDERED: Acetaminophen650 M1 PO (00:42)
[2023-12-21] MEDS ORDERED: MIRALAX17 GM PO (00:43)
[2023-12-21] MEDS ORDERED: FAMO20 PO (00:43)
[2023-12-21] MEDS ORDERED: SENN187 PO (00:44)
[2023-12-21 04:31] VITALS: BP 120/82
[2023-12-21 04:42] LABS: BASOPHILS ABSOLUTE AUTO 0.04 K/mm3 (0.00-0.23); BASOPHILS PERCENT AUTO 0 % (0-2); EOSINOPHILS PERCENT AUTO 0 % (0-6); Hematocrit 36.1 % (33.0-51.0); IMMATURE GRAN ABSOLUTE AUTO 0.06 K/mm3 (0.00-0.10); IMMATURE GRAN PERCENT AUTO 1 % (0-1); LYMPHOCYTES ABSOLUTE AUTO 0.43 K/mm3 (0.84-5.20); LYMPHOCYTES PERCENT AUTO 4 % (21-46); MONOCYTES ABSOLUTE AUTO 0.05 K/mm3 (0.16-1.47); MONOCYTES PERCENT AUTO 1 % (4-13); Mean Corpuscular HGB 30.1 pg (26.0-34.0); Mean Corpuscular HGB Conc 33.2 g/dL (31.5-36.5); Mean Corpuscular Volume 91 fL (80-100); Mean Platelet Volume 9.1 fL (9.1-12.4); NEUTROPHILS ABSOLUTE AUTO 9.46 K/mm3 (1.96-9.15); NEUTROPHILS PERCENT AUTO 94 % (41-73); Platelet Count 440 K/mm3 (150-400); RDW Coefficient Variation 12.5 % (11.7-14.2); RDW Standard Deviation 41.4 fL (35.1-46.3); Red Blood Cell Count 3.99 M/mm3 (3.80-5.20); White Blood Cell Count 10.04 K/mm3 (4.00-11.30)
[2023-12-21 05:09] LABS: Albumin, Blood 2.4 g/dL (3.4-5.0); Albumin/Globulin Ratio 0.6 (0.8-1.8); Bilirubin, Total 0.5 mg/dL (0.1-1.0); Bun/Creatinine Ratio 19.1 (12.0-20.0); Calcium, Blood 8.3 mg/dL (8.5-10.1); Creatinine, Blood 0.52 mg/dL (0.40-1.00); Globulin, Blood 4.1 g/dL (2.2-4.0); Potassium, Blood 4.6 mmol/L (3.5-5.5); Total Protein, Blood 6.5 g/dL (6.4-8.2)
--- NOTE | 2023-12-21 05:54 | NUR ---
SHIFT SUMMARY NO ACUTE CHANGES SINCE ARRIVAL TO PCU NOTE. SEE NOTE FOR DETAILS. PT PLACED ON 1L NC TO MAINTAIN SPO2 >90% WHEN ASLEEP. NO INCREASE IN RIGHT FACIAL SWELLING NOTED.NS INFUSING THROUGHOUT THE NIGHT ORDERED PER EMAR. VSS, NADN OF THIS NOTE.
[2023-12-21 07:45] VITALS: BP 136/85
[2023-12-21] MEDS ORDERED: Famotidine 10 MG/ML 2ML Vial IV SCH (09:00)
[2023-12-21] MEDS ORDERED: DIPH50 PO (09:54)
--- NOTE | 2023-12-21 09:54 | NUR ---
PATIENT IS ALERT AND ORIENTED X 4 NO ACUTE CONCERNS. ON RA CURRENTLY SPO2 >92%. PATIENT DENIES SOB. FACIAL SWELLING IMPROVED PER NIGHT RN REPORT. DENIES CHEST PAIN PRESSURE OR SOB, IMPROVED EXERTIONAL CAPACITY, WAS ABLE TO WALK WITH FWW AND PCT AROUND THE UNIT. PATIENT STARTED ON CLEAR LIQUID DIET. BOWEL TONES IMPROVED AND ACTIVE. AIRWAY CLEAR, ABLE TO SPEAK IN FULL SENTENCES. NO ACUTE CONCERNS, PLAN FOR DISCHARGE THIS AT 1100
[2023-12-21] MEDS ORDERED: Prednisone20 MG PO (09:55)
--- NOTE | 2023-12-21 13:47 | NUR ---
Upon receiving a referral for spiritual care, I visited the patient. She talks about her recovery process from a major hernia surgery and that she will be heading back to [facility] today (possibly). She tells me about her neighborhood and the strong connections they have and how they look out for one another. She also mentions her sister as one of her great supporters. She shares about her dog that she is training to be a medical dog once she is recovered from the surgery. She states that she has no spiritual needs at this time but appreciated the conversation and found it to be uplifting.
== END 2023-12-21 15:00 ==
LOC: ER 18:31 → PCU 18:32
PROVIDERS: Student in an Organized Health Care Education/Training Program; ADMIT Internal Medicine
DX: T78.3XXA Angioneurotic edema, initial encounter (principal); Z98.890 Other specified postprocedural states; E11.9 Type 2 diabetes mellitus without complications; M06.9 Rheumatoid arthritis, unspecified; C53.9 Malignant neoplasm of cervix uteri, unspecified; Z87.891 Personal history of nicotine dependence; Z79.899 Other long term (current) drug therapy; Z79.891 Long term (current) use of opiate analgesic; Z88.0 Allergy status to penicillin; Z88.8 Allergy status to other drugs, medicaments and biological substances
CPT/HCPCS: 36415; 80053; 83880; 85025; 85610; 96372; 96372-59; 96374; 96375; 96376; 99285-25; A9270; G0378; J0171; J1200; J1650; J2930; J3010; J7030

== ENCOUNTER 2024-02-22 09:58 | Emergency (ER) | payer MEDICARE, OTHER ==
[~2024-02-22] VITALS: Ht 162.6 cm; Wt 55.8 kg
[~2024-02-22 09:58] MED LIST changes: +Acetaminophen650 M1 PO; +DIPH50 PO; +MIRALAX17 GM PO; +OXYC1L PO; +Prednisone20 MG PO; +SENN187 PO
[2024-02-22 10:06] VITALS: BP 136/93
[2024-02-22] MEDS ORDERED: CLIN150 PO (11:27)
== END 2024-02-22 11:35 | disposition home or self-care (01) ==
LOC: ER 09:58
DX: R05.9 Cough, unspecified (principal); E11.9 Type 2 diabetes mellitus without complications; Z87.891 Personal history of nicotine dependence; Z79.899 Other long term (current) drug therapy; Z88.0 Allergy status to penicillin; Z88.8 Allergy status to other drugs, medicaments and biological substances
CPT/HCPCS: 71046; 99283-25

== ENCOUNTER → 2024-06-27 | Outpatient (CLI) | payer MEDICARE, OTHER ==
[2024-06-27 16:43] LABS: BASOPHILS ABSOLUTE AUTO 0.09 K/mm3 (0.00-0.23); BASOPHILS PERCENT AUTO 1 % (0-2); EOSINOPHILS ABSOLUTE AUTO 0.09 K/mm3 (0.00-0.68); EOSINOPHILS PERCENT AUTO 1 % (0-6); Hematocrit 43.6 % (33.0-51.0); Hemoglobin 14.3 g/dL (11.5-16.0); IMMATURE GRAN ABSOLUTE AUTO 0.03 K/mm3 (0.00-0.10); IMMATURE GRAN PERCENT AUTO 0 % (0-1); LYMPHOCYTES ABSOLUTE AUTO 1.51 K/mm3 (0.84-5.20); LYMPHOCYTES PERCENT AUTO 17 % (21-46); MONOCYTES ABSOLUTE AUTO 0.58 K/mm3 (0.16-1.47); MONOCYTES PERCENT AUTO 7 % (4-13); Mean Corpuscular HGB Conc 32.8 g/dL (31.5-36.5); Mean Corpuscular Volume 91 fL (80-100); Mean Platelet Volume 9.9 fL (9.1-12.4); NEUTROPHILS ABSOLUTE AUTO 6.38 K/mm3 (1.96-9.15); NEUTROPHILS PERCENT AUTO 74 % (41-73); Platelet Count 303 K/mm3 (150-400); RDW Coefficient Variation 12.8 % (11.7-14.2); RDW Standard Deviation 43.8 fL (35.1-46.3); Red Blood Cell Count 4.77 M/mm3 (3.80-5.20); White Blood Cell Count 8.68 K/mm3 (4.00-11.30)
[2024-06-27 17:21] LABS: Albumin, Blood 3.5 g/dL (3.4-5.0); Albumin/Globulin Ratio 0.9 (0.8-1.8); Alk Phos 86 U/L (50-136); Anion Gap 10 mmol/L (3-11); Aspartate Aminotrans (AST/SGOT 15 U/L (12-37); Bilirubin, Total 0.4 mg/dL (0.1-1.0); Blood Urea Nitrogen 24 mg/dL (8-24); CHOL/HDL RATIO 2.8; CO2, Blood 28 mmol/L (21-32); Calcium, Blood 8.5 mg/dL (8.5-10.1); Chloride, Blood 106 mmol/L (98-108); Cholesterol 219 mg/dL (50-200); Globulin, Blood 3.7 g/dL (2.2-4.0); Glucose, Blood 94 mg/dL (70-99); HDL Cholesterol 77 mg/dL (>39); LDL/HDL RATIO 1.4; Low Density Lipoprotein Chol 107 mg/dL (0-110); Potassium, Blood 3.7 mmol/L (3.5-5.5); Sodium, Blood 140 mmol/L (136-145); Total Protein, Blood 7.2 g/dL (6.4-8.2); Triglycerides 173 mg/dL (30-160); Very Low Density Lipoprot Chol 34 mg/dL (6-32)
[2024-06-27 17:30] LABS: Alanine Aminotransfer (ALT/SGP 16 U/L (12-78); Bun/Creatinine Ratio 30.7 (12.0-20.0); Creatinine, Blood 0.78 mg/dL (0.40-1.00); Glomerular Filtration Rate 83 (60-)
== END | disposition home or self-care (01) ==
LOC: LAB SHORT 15:20 → LAB 15:20
PROVIDERS: Family Medicine
DX: Z51.81 Encounter for therapeutic drug level monitoring (principal); Z79.899 Other long term (current) drug therapy
CPT/HCPCS: 80053; 80061; 84443; 85025

== ENCOUNTER 2025-07-05 08:30 | Day surgery (SDC) | payer MEDICARE ==
[2025-07-05] VITALS (17 sets, daily range): BP systolic 117–149; BP diastolic 78–102
[~2025-07-05] VITALS: Ht 160 cm; Wt 56.6 kg
[~2025-07-05 08:30] MED LIST changes: +FLUT1DIS5 INH; +Triamcinolone A15 G2 TOP
--- NOTE | 2025-07-05 09:05 | NUR ---
Ambulatory in Day Surgery History, Chart, Medications and Allergies reviewed before start of procedure. Pre-Op teaching done. Pt verbalizes understanding. Patient States Post-Procedure ride home has been arranged.
--- NOTE | 2025-07-05 09:23 | NUR ---
07/05/25 0923 Nancy Braun CONFIRMED AND REVIEWED H&P, MEDCICATIONS, ALLERGIES, MEDICAL HISTORY, RESPIRATORY HISTORY, VITAL SIGNS, 3-LEAD EKG, CONSENTS, AND PHYSICIAN ORDERS. PATIENT CONFIRMS NPO STATUS AND AGREES WITH SCHEDULED PROCEDURE. MONITOR INTACT WITH CONTINUOUS PULSE OXIMETRY, CAPNOGRAPHY, 3-LEAD EKG, INTERMITTENT BP. SUPPLEMENTAL O2 TO BE TITRATED THROUGHOUT PROCEDURE TO MAINTAIN O2 SATURATION ABOVE 90%. PATIENT DETERMINED TO BE ASA APPROPRIATE FOR PROPOFOL SEDATION PRIOR TO START OF PROCEDURE BY DR. LEESA ALTMAN SCOPE #[id number]
--- NOTE | 2025-07-05 11:40 | NUR ---
Patient up to Ambulate independently. Gait steady. Discharge instructions reviewed with patient. Patient verbalizes understanding. Copy given to patient to take home. Discharged via wheelchair to private car for ride home.
== END 2025-07-05 10:06 | disposition home or self-care (01) ==
LOC: ORSCMMR 08:30 → ORD 09:30 → ORSCMMR 10:06
PROVIDERS: Internal Medicine Gastroenterology
PROC: 0DBN8ZX Excision of Sigmoid Colon, Via Natural or Artificial Opening Endoscopic, Diagnostic (ICD-10-PCS; principal; 2025-07-05 09:30)
DX: Z12.11 Encounter for screening for malignant neoplasm of colon (principal); K63.5 Polyp of colon; Z86.0101 Personal history of adenomatous and serrated colon polyps; K21.9 Gastro-esophageal reflux disease without esophagitis; J44.9 Chronic obstructive pulmonary disease, unspecified; Z79.899 Other long term (current) drug therapy; F17.210 Nicotine dependence, cigarettes, uncomplicated
CPT/HCPCS: 88305; J2704; J7120